=== PATIENT | female | born 1980 | race Caucasian/White ===

== ENCOUNTER 2025-06-22 15:00 | Emergency (ER) | payer OTHER, SELFPAY ==
--- OUTSIDE RECORDS SUMMARY | 2001-09-23 04:15 | XMS_ITS | Continuity of Care Document ---
Author Organization [facility] Address [address] [place] [address] [address] [place] [address] Phone Care Team Providers Care Information Specialist Name Role Phone Metzger OD, Adán Unavailable Unavailable Advance Directives Directive Yes / No Effective Date File Name No Information Encounters Encounter Description Practice Location Reason(s) For Visit Diagnoses Date Provider Providers Copied on Encounter [facility], [address] [place] [address] [address], [place], [id number], [place] tel:[phone] [facility] [place] No Information Dec-0 5-200 1 Metzger OD Adán. [address] [facility] , [address], [place], [address], [place]. tel:[phone] Family History Family Member Type Diagnosis Age At Onset No Information Payers Payer name Insurance type Covered libertarian ID Authoriza tion(s) No Information Social History Type Description Quantity Date Captured Comments Sex Female Smoking Status No Information Chief Complaint And Reason For Visit No Information Reason For Referral Reason For Referral No Information History Of Present Illness Encounter Date Complaint History Of Prese nt Illness No Information Functional Status Date Functional Assessmen t No Information Instructions Date Instruction Additional Infor mation No Information Assessments Type Assessment Date No Information Patient Care Teams Name Effective Dates (start - stop) Status Members No Information
--- OUTSIDE RECORDS SUMMARY | 2001-09-23 04:15 | XMS_ITS | Continuity of Care Document ---
Author Organization [facility] Address [address] [place] [address] [address] [place] [address] Phone Care Team Providers Care Salesforce Developer Name Role Phone Metzger OD, Adán Unavailable Unavailable Advance Directives Directive Yes / No Effective Date File Name No Information Encounters Encounter Description Practice Location Reason(s) For Visit Diagnoses Date Provider Providers Copied on Encounter Formerly [facility], [address] [place] [address] [address], [place], [place], [id number], [place] tel:[phone] [facility] [place] No Information Dec-0 5-200 1 Metzger OD Adán. [address] [facility] , [address], [place], [address], [place]. tel:[phone] Family History Family Member Type Diagnosis Age At Onset No Information Payers Payer name Insurance type Covered constitution party ID Authoriza tion(s) No Information Social History [...]
--- NOTE | ~2025-06-22 | CT_ITS ---
EXAMINATION: CT abdomen pelvis w con DATE: 06/22/2025 18:17 INDICATION: Diarrhea for 12 days. Loss of appetite. TECHNIQUE: Computed tomography (CT) of the abdomen and pelvis was performed with 100 cc Omnipaque 350 intravenous contrast. The dose-length product was 412.41 mGy-cm. Automated exposure control and iterative reconstruction technique were employed. COMPARISON: None. FINDINGS: Lung bases unremarkable. Heart size normal. Breast implants partially visualized. No significant pleural or pericardial effusion. The liver, spleen, pancreas, adrenal glands and kidneys are unremarkable. There is fluid with air- fluid levels throughout the small bowel and colon to the rectum, consistent with history of diarrhea. Cannot exclude enterocolitis. Uterus surgically absent. No acute osseous abnormality. No significant vascular abnormality. No lymphadenopathy. No free air or free fluid. IMPRESSION: 1. Moderate fluid with air-fluid levels throughout the bowel, consistent with known diarrhea. Consider infectious/inflammatory process. Reviewed, dictated and finalized at location O. IMPRESSION: 1. Moderate fluid with air-fluid levels throughout the bowel, consistent with k nown diarrhea. Consider infectious/inflammatory process.
[2025-06-22 15:01] VITALS: BP 103/72; PULSE 126; RESP 16; TEMP 36.5; O2SAT 97
[2025-06-22 15:53] VITALS: BP 108/82; PULSE 110; RESP 18; O2SAT 99
[2025-06-22] MEDS: SODIUM CHLORIDE 0.9% IV 1,000 ML 999 ML IV CONT (15:59)
[2025-06-22 16:11] LABS: Hematocrit 48.1 % (37.0-47.0); Hemoglobin 16.3 g/dL (12.0-15.0); Mean Corpuscular HGB Conc 33.9 g/dl (32-36); Mean Corpuscular Hemoglobin 27.5 pg (26-34); Mean Corpuscular Volume 81.3 fl (80-100); Platelet Count Result 316 k/mm3 (150-375); Red Blood Count 5.92 M/mm3 (4.2-5.4); White Blood Count 5.2 K/mm3 (4.5-10.0)
[2025-06-22 16:20] LABS: Alanine Aminotransferase 22 U/L (6-35); Albumin Level 4.7 g/dL (3.5-5.1); Alkaline Phosphatase 77 U/L (38-126); Anion Gap 14 mmol/L (4-12); Aspartate Amino Transferase 27 U/L (14-36); Bilirubin,Total 0.6 mg/dL (0.2-1.3); Blood Urea Nitrogen 9 mg/dL (7-17); Calcium 9.1 mg/dL (8.4-10.2); Carbon Dioxide 21 mmol/L (22-30); Chloride 101 mmol/L (98-107); Estimated CRCL calculation 85 ml/min; Estimated Glomerular Filt Rate > 60; Glucose 94 mg/dL (65-110); Lipase 47 U/L (23-300); Potassium 3.0 mmol/L (3.4-5.0); Sodium 136 mmol/L (137-145); Total Protein 8.4 g/dL (6.3-8.2)
--- OUTSIDE RECORDS SUMMARY | 2025-06-22 16:28 | XMS_ITS | Clinical Summary ---
Author Organization [facility] Address [address] [facility] [place] [address] Care Team Providers Care Color Separation Photographer Name Role Phone Shayne Valenzuela MD Primary Care Provider [phone] Source Comments [facility],non-owned Affiliates and Associated Physician Practices is amultiple site organization consisting of ambulatory clinics and hospital sitesin [place], [place], [place] and [place]. This disclosure is being madepursuant to the Care Everywhere program and may not contain all information available regarding this patient. Last updated 18.[facility] Allergies Active Allergy Reactions Criticality Noted Date Comments Penicillins Rash 11/30/2009 Medications * Be aware that medications may not be up to date on this document. Alwaysverify current medications with the patient. buPROPion (WELLBUTRIN) 100 MG tablet Take 100 mg by mouth daily. Active divalproex DR (DEPAKOTE) 250 MG tablet Take by mouth 5 times daily. Active alprazolam (XANAX) 0.5 MG tablet Take 0.5 mg by mouth 3 times daily as needed for Anxiety. Active fish oil/omega-3 fatty acids (FISH OIL) 1000 MG capsule Take 1000 mg by mouth daily. Active calcium carbonate (CALTRATE) 600 MG tablet Take 1 Tab by mouth daily with food. Active cetirizine (ZYRTEC) 10 MG tablet Take 10 mg by mouth daily. 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 Gender Identity Not on file Sexual Orientation Not on file Plan of Treatment Health Maintenance Due Date Last Done Comments LIPID TESTING 1982 MAMMOGRAM 1982 HIV SCREENING 1997 HEPATITIS C SCREENING 04/26/2000 DTAP/TDAP/TD VACCINES (1 - Tdap) 2001 HEPATITIS B VACCINE (1 of 3 - 19+ 3-dose series) 2001 HPV VACCINE (1 - 3-dose SCDM series) 2009 COVID-19 VACCINE (1 - 2023-2 5 season) 2024 DEPRESSION SCREENING 10/20/2024 INFLUENZA VACCINE (#1) 2025 ZOSTER VACCINE (1 of 2) 2032 HIB VACCINE Aged Out No longer eligi ble based on patient's age to complete this topic MENINGOCOCCAL (Group B) VACC INE SHARED DECISION-MAKING Aged Out No longer eligibl e based on patient's age to complete this topic MENINGOCOCCAL GROUPS A/C/Y/W VACCINE Aged Out No longer eligible b ased on patient's age to complete this topic PNEUMOCOCCAL VACCINE Aged Out No long er eligible based on patient's age to complete this topic Insurance [facility] Care Teams Color Separation Photographer Relationship Specialty Start Date End Date Shayne Valenzuela MD [address] [id number] PCP - General 03/09/18
--- OUTSIDE RECORDS SUMMARY | 2025-06-22 16:29 | XMS_ITS | Encounter Summary ---
Author Organization [facility] Address [address] [place] [address] Phone Care Team Providers Care Certified Adapted Physical Educator Name Role Phone Shayne Valenzuela MD Primary Care Provider [phone] Diana Jara MD Unavailable [phone] No, Physician Primary Care Provider [phone] Chente Bender MD Primary Care Provider [phone] Chente Bender MD Primary Care Provider [phone] Davida, Physician Primary Care Provider [phone] Shayne Valenzuela MD Primary Care Provider [phone] Encounter Details Date Type Department Care Team (Latest Contact Info) Description 05/29/2010 Orders Only [facility] Scanning, Provider Social History Tobacco Use Types Packs/Day Years Used Date Smoking Tobacco: Never Assessed Comments Unknown Sex and Gender Information Value Date Recorded Sex Assigned at Not on file Legal Sex Female 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 DEMONSTRATOR Gender Identity Female 12/09/2023 6:52 PM FARM DEMONSTRATOR Sexual Orientation Straight 12/09/2023 6: 52 PM FARM DEMONSTRATOR documented as of this encounter Plan of Treatment Not on file documented as of this encounter Procedures Procedure Name Priority Date/Time Associated Diagnosis Comments SCAN - LABS 05/29/2010 SCAN - LABS 05/29/2010 documented in this encounter Results * SCAN - LABS (05/29/2010) us Provider Scanning Final Result * SCAN - LABS (05/29/2010) us Provider Scanning Final Result documented in this encounter Visit Diagnoses Not on filedocumented in this encounter Care Teams Certified Adapted Physical Educator Relationship Specialty Start Date End Date Shayne Valenzuela MD [address] [place] [address] PCP - General 12/03/16 04/06/20 No, Physician PCP - General 04/07/20 05/09/22 [place] [address] [place] [address] PCP - General Family Medicine 05/13/22 06/30/22 [place] [address] [place] [address] PCP - General 05/10/22 05/12/22 No, Physician PCP - General 07/01/22 01/25/24 Shayne Valenzuela MD [address] [place] [address] PCP - General Family Medicine 01/26/24 Diana Jara MD [address] [place] [address] Referring Physician Family Medicine 01/15/19 04/06/20 documented as of this encounter
--- OUTSIDE RECORDS SUMMARY | 2025-06-22 16:29 | XMS_ITS | Clinical Summary ---
Author Organization [facility] Address [address] [place] [address] Care Team Providers Care Public Works Inspector Name Role Phone Shayne Valenzuela MD Primary Care Provider [phone] Allergies Active Allergy Reactions Criticality Noted Date Comments Amoxicillin Rash Medium Penicillins Rash Medium Medications amitriptyline (ELAVIL) 50 mg tabletIndicatio ns:pain Take 1 tablet (50 mg total) by mouth manager food safety before breakfast 12 8 Active albuterol HFA (PROVENTIL HFA,VENTOLIN HFA,PROAIR HFA) 90 mcg/actuation inhaler Inhale 2 puffs every 6 (six) hours as needed for wheezing Active ALPRAZolam (XANAX) 1 mg tabletIndicatio ns:anxiety Take 1 tablet (1 mg total) by mouth 4 (four) times a day Active QUEtiapine (SEROquel) 100 mg tabletIndicatio ns:Depression associated with Bipolar Disorder Take 1 tablet (100 mg total) by mouth 3 (three) times a day Active nitrofurantoin (MACRODANTIN) 100 mg capsuleIndicati ons:Urinary Tract/Genitouri nary Infection Take 1 capsule (100 mg total) by mouth 4 (four) times a day as needed Active traZODone (DESYREL) 50 mg tablet Take 1 tablet (50 mg total) by mouth nightly 1 Active estradioL (ESTRACE) 2 mg tabletIndicatio ns:Vasomotor Symptoms associated with Menopause Take 2 tablets (4 mg total) by mouth daily 60 tablet 2 12/19/202 3 Active tacrolimus (PROTOPIC) 0.1 % ointment APPLY THIN LAYER TOPICALLY TO THE AFFECTED AREA 1 TO 2 TIMES DAILY UNTIL RESOLVED. REPEAT NEEDED FOR FLARES THEREAFTER 4 Active triamcinolone (KENALOG) 0.1 % cream APPLY TWICE TO AFFECTED AREAS OF CHEST FOR 2 WEEKS THEN TAKE 1 WEEK BREAK. IF RASH CONTINUES RESUME CREAM. 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 Overview (08/22/2020): Added automatically from request for surgery [id number] Cysts of both ovaries 07/27/2020 Vasomotor symptoms due to menopause 07/27/2020 Postoperative visit 07/27/2020 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 01/03/2017 Polyp of colon 04/06/2015 Peutz-Jeghers syndrome 11/22/2014 Overview (05/18/2018): Added automatically from request for surgery [id number] Peutz-Jeghers syndrome 11/22/2014 Encounters Date Type Department Care Team Description 06/22/2025 Telephone [facility] Gastroenterology [facility] [address] [place] [address] [place] [address] Laurie Piña RN 06/21/2025 Telephone [facility] [address] [facility] [address] [place] [address] [place] [address] Gege Verduzco LPN 05/26/2025 8:00 AM CDT Procedure visit [facility] Otolaryngology [address] [facility] [address] [place] [address] [place] [address] Michelle Beltre Au.D. Tinnitus of both ears (Primary Dx) 05/09/2025 8:42 AM CDT - 05/09/2025 11:59 PM CDT Hospital Encounter [facility] ([facility]) [address] [place] [address] Encounter for screening mammogram for malignant neoplasm of breast Discharge Disposition: Discharge to home or self care from Last 3 Months Surgical History Surgery Date Site/Laterality Comments [place] TOTAL ABDOMINAL HYSTERECT W/WO RMVL TUBE OVARY Hysterectomy - (Added by TW Conv) [place] APPENDECTOMY Appendectomy - (Added by TW Conv) [place] UNLISTED PROCEDURE SMALL INTESTINE Intestinal Surgery - (Added by TW Conv) COLECTOMY THYROID CYST EXCISION HYSTERECTOMY SALPINGOOPHORECTOMY 06/30/2020 Bilateral CHOLECYSTECTOMY 10/20/2021 - 10/19/2022 BREAST SURGERY 10/20/2020 - 10/19/2021 Bilateral implants Medical History Medical History Date Comments Anemia Colon polyp Peutz-Jeghers polyps of small bowel (HCC) Asthma Chronic bronchitis (HCC) hisotry of it a few years ago Anxiety Cervical cancer (HCC) chronic ca ncerous cells in vaginal wall Interstitial cystitis Depression Panic attacks Family History Medical History Relation Name Comments Colon cancer Father Colon cancer - (Added by TW Conv) Heart disease Father Family history of cardiac disorder - (Added by TW Conv) Breast cancer Maternal Grandmother Family history of malignant neoplasm of breast - (Added by TW Conv) Diabetes Mother Family history of diabetes mellitus - (Added by TW Conv) Pancreatic cancer Paternal Grandfather Breast cancer Paternal Grandmother Family history of malignant neoplasm of breast - (Added by TW Conv) Anesthesia problems Neg Hx Relation Name Status Comments Father Maternal Grandmother Mother Paternal Grandfather Paternal Grandmother Social History Tobacco Use Types Packs/Day Years Used Date Smoking Tobacco: Former Cigarettes 0.2 5 2 005 - 2009 Smokeless Tobacco: Never Alcohol Use Standard Drinks/Week Comments No 0 (1 standard drink = 0.6 oz pur e alcohol) AUDIT-C Answer Date Recorded Q1: How often do you have a drink containing alcohol? Never 03/31/2024 Q2: How many drinks containi ng alcohol do you have on a typical day when you are drinking? Patient does not drink Q3: How often do you have si x or more drinks on one occasion? Never 03/31/2024 Personal Safety Answer Date Recorded Have you ever been in or are you currently in a harmful physical or emotional relationship or is someone making you feel afraid or unsafe? Denies 03/31/2024 Comments No Sex and Gender Information Value Date Recorded Sex Assigned at Not on file Legal Sex Female 9:10 PM CLIENT RELATIONSHIP MANAGER Gender Identity Female 12/09/2023 6:52 PM CLIENT RELATIONSHIP MANAGER Sexual Orientation Straight 12/09/2023 6: 52 PM CLIENT RELATIONSHIP MANAGER Obstetrics History Para Term AB IAB SAB Ectopic Multiple Livin g Live Births 0 0 0 0 0 0 0 0 0 0 0 Last Filed Vital Signs Vital Sign Reading Time Taken Comments Blood Pressure 117/92 03/31/2024 11:42 AM CDT Pulse 93 03/31/2024 11:42 AM CDT Temperature 36 C (96.8 F) 03/31/2024 11:22 AM CDT Respiratory Rate 17 03/31/2024 11:42 AM CDT Oxygen Saturation 97% 03/31/2024 11:42 AM CDT Inhaled Oxygen Concentration - - Weight 78.5 kg (173 lb) 05/09/2025 8:49 AM CDT Height 180.3 cm (5' 11) 05/09/2025 8:49 AM CDT Body Mass Index 24.13 05/09/2025 8:49 AM CDT Plan of Treatment Health Maintenance Due Date Last Done Comments Depression Screening 1982 Hepatitis C Screening 1982 DTaP/Tdap/Td Vaccine (1 - Tdap) 1993 Varicella Vaccines (1 of 2 - 13+ 2-dose series) 1995 Hepatitis B Screening 2000 Regular Well Visit/Exam 18-64 2000 Pneumococcal vaccine <65 (1 of 2 - PCV) 2001 HPV Vaccines (1 - 3-dose SCD M series) 2009 Covid-19 Vaccine (2 - 2024-2 6 season) 2025 11/17/2020 Influenza Vaccine (#1) 2025 Breast Cancer Screening-Mammogram 05/09/2026 05/09/2025, 02/26/2024, 10/09/2022, Additional history exists Cervical Cancer Screening Discontinued 2022, 05/09/2023, 05/10/2022, Additional history exists Procedures Procedure Name Priority Date/Time Associated Diagnosis Comments AUDBASE RESULTS 05/26/2025 8:01 AM CDT SCREENING MAMMOGRAM BILATERAL W RICHARDSON W IMPLANTS Schedule Routine, Read Routine (OP Routine) 05/09/2025 8:59 AM CDT Encounter for screening mammogram for malignant neoplasm of breast HIGH RISK HPV DNA DETECTION WITH GENOTYPING Routine 05/09/2023 9:08 AM CDT from Last 3 Months or Most Recently Relevant to Health Maintenance Results * AudBase Results (05/26/2025 8:01 AM CDT) Provider Scanning AUDIOLOGY SERVICES ORDERABLES Final Result * Screening Mammogram Bilateral w Richardson w Implants (05/09/2025 8:59 AM CDT) Anatomical Region Laterality Modality Breast Bilateral Mammography Impressions 05/11/2025 10:45 AM CDT Bilateral No evidence of malignancy in either breast. OVERALL BI-RADS FINAL ASSESSMENT: 1 - Negative RECOMMENDATION: Recommend bilateral annual screening mammography. Narrative 05/11/2025 10:45 AM CDT EXAMINATION: Screening Mammogram Bilateral w Richardson w Implants: 05/09/2025 COMPARISON: Relevant prior studies available at the time of interpretation were reviewed, including the most recent mammogram on: 02/26/2024. TECHNIQUE: Mammography was performed with 2D and digital breast tomosynthesis (DBT) images. CAD was utilized. BREAST PARENCHYMAL COMPOSITION: There are scattered areas of fibroglandular density. FINDINGS: Bilateral There is no suspicious mass, calcification, or architectural distortion in either breast.Stable implants. Francisca Higginbotham DO IMG MAMMO PROCEDURES Fin al Result * High Risk HPV DNA Detection with Genotyping (Molecular component) (05/09/2023 9:08 AM CDT) HPV HR 16 Not Detected Not Detected [facility] HPV HR 18 Not Detected Not Detected [facility] HPV HR Non 16/18 Not Detected Not Detected [facility] Comment: Interpretive Data Nucleic acid amplification for detection of high-risk Human Papilloma virus (HPV) is performed by the Sara Elie 6800 HPV test. This assay specifically detects HPV-16 and HPV-18 genotypes. The following HPV genotypes are detected as high-risk HPV: HPV-31, 33, 35, ,39, 45, 51, 52, 56, 58, 59, 66, and 68. This assay has been approved by the [place] Food and Drug Administration for detection of HPV in cervical specimens collected by a physician using an endocervical brush/spatula or cervical broom and placed in the ThinPrep Pap Test PreservCyt collection containers. The performance characteristics of this test have been verified by the [facility] Molecular Infectious Disease laboratory. Correlate with separately reported cytology results, as applicable. Interpretive data last revised 23 Endocervical 05/09/2023 9:08 AM CDT 05/12/2023 3:59 PM CDT us Raina Ramon MD LAB BODY FLUIDS AND STO OLS ORDERABLES Final Result Performing Organization Address City/State/[facility] Co de Phone Number [facility] [place] [address] from Last 3 Months or Most Recently Relevant to Health Maintenance Insurance [facility] Member Subscriber Plan / Payer (Ef fective 2018-Present) Name:Iona Hawley Relation to Subscriber:Self Name:IONA HAWLEY Payer ID:[id number] (NAIC) Type:MIQUEL ORNELAS Address: [facility] [id number] [place] [facility] CHOICE [facility]US [facility] HMO/PPO Address: [place] [address] [facility]/PPO Address: [place] [address] [facility] CHOICE [facility]US [facility] HMO/PPO Address: [facility] [address] [place] [address] Advance Directives For more information, please contact: [phone] * Full Code (Latest Code Status on File) Date Activated Date Inactivated Comments 03/31/2024 8:32 AM 03/31/2024 3:57 PM * Full Code Date Activated Date Inactivated Comments 03/30/2024 10:43 AM 03/30/2024 5:52 PM * Full Code Date Activated Date Inactivated Comments 09/28/2021 7:32 AM 09/28/2021 1:15 PM * Full Code Date Activated Date Inactivated Comments 06/30/2020 3:15 PM 06/30/2020 9:27 PM * Full Code Date Activated Date Inactivated Comments 07/21/2018 8:07 AM 07/21/2018 12:54 PM Care Teams Public Works Inspector Relationship Specialty Start Date End Date Shayne Valenzuela MD [address] [place] [address] PCP - General Family Medicine 01/26/24
--- OUTSIDE RECORDS SUMMARY | 2025-06-22 16:29 | XMS_ITS | Encounter Summary ---
Author Organization [facility] Address [address] [place] [address] Phone Care Team Providers Care Field Case Manager Name Role Phone Shayne Valenzuela MD Primary Care Provider [phone] Encounter Details Date Type Department Care Team (Late st Contact Info) Description 06/22/2025 Telephone [facility] Gastroenterology [facility] 12th [place] [address] [place] [address] Laurie Piña RN Social History Tobacco Use Types Packs/Day Years [...] on file Legal Sex Female 9:10 PM ELECTRIC ACCOUNTING MACHINE OPERATOR Gender Identity Female 12/09/2023 6:52 PM ELECTRIC ACCOUNTING MACHINE OPERATOR Sexual Orientation Straight 12/09/2023 6: 52 PM ELECTRIC ACCOUNTING MACHINE OPERATOR documented as of this encounter Miscellaneous Notes * Telephone Encounter - Laurie Piña RN - 06/22/2025 11:14 AM CDT Spoke to pt, updated her that I had messaged with Brown and Brown planned to call the pt regarding her symptoms. Pt said she thinks she is going to go the ER, I discussed with her and endorsed that if she is having urgent symptoms, likely the ER would be the best option. Verbalized understanding. documented in this encounter Plan of Treatment Not on file documented as of this encounter Visit Diagnoses Not on filedocumented in this encounter Care Teams Field Case Manager Relationship Specialty Start Date End Date Shayne Valenzuela MD [address] [place] [address] PCP - General Family Medicine 01/26/24 documented as of this encounter
--- OUTSIDE RECORDS SUMMARY | 2025-06-22 16:29 | XMS_ITS | Encounter Summary ---
Author Organization [facility] Address [address] [place] [address] Phone Care Team Providers Care Distribution Sales Manager Name Role Phone Shayne Valenzuela MD Primary Care Provider [phone] Encounter Details Date Type Department Care Team (Late st Contact Info) Description 06/21/2025 Telephone [facility] Gastroenterology [facility] [address]th [place] [address] [place] [address] Gege Verduzco LPN Social History Tobacco Use Types Packs/Day Years [...] on file Legal Sex Female 9:10 PM JAVASCRIPT DEVELOPER Gender Identity Female 12/09/2023 6:52 PM JAVASCRIPT DEVELOPER Sexual Orientation Straight 12/09/2023 6: 52 PM JAVASCRIPT DEVELOPER documented as of this encounter Miscellaneous Notes * Telephone Encounter - Gege Verduzco LPN - 06/22/2025 10:58 AM CDT Pt LVM wanting to speak with Brown DE JESUS. RN is still out of the office. * Telephone Encounter - Gege Verduzco LPN - 06/21/2025 2:23 PM CDT Pt LVM stating she is on day 11 of diarrhea, recently developed a fever, and loss of appetite. She has been to UC and stool urine samples were taken and came back negative but inquired if office could give further guidance. SARA: 11/2016 Last colonoscopy: 03/2024 Spoke with Laurie DE JESUS child care supervisor who confirmed pt will need to speak with PCP for GI consult. Returned call to pt. Informed her recommendations. She stated she will call back tomorrow and speak with Brown directly. documented in this encounter Plan of Treatment Not on file documented as of this encounter Visit Diagnoses Not on filedocumented in this encounter Care Teams Distribution Sales Manager Relationship Specialty Start Date End Date Shayne Valenzuela MD [address] [place] [address] PCP - General Family Medicine 01/26/24 documented as of this encounter
--- NOTE | 2025-06-22 16:40 | ED.NAVMDI ---
HPI - Nausea/Vomiting/Diarrhea General Chief complaint: Nausea/Vomiting/Diarrhea Stated complaint: diarrhea Time Seen by Provider: 06/22/25 15:36 Source: patient Mode of arrival: ambulatory Limitations: no limitations History of Present Illness HPI Narrative: This is a 45-year-old female that presents to the emergency department for diarrhea. Ongoing over the last 12 days. Reports 6 episodes daily. The diarrhea is watery. She has been evaluated for this complaint, had negative C diff testing. Continues to have diarrhea and crampy abdominal pain. Reports subjective fever. Related Data Allergies Allergy/AdvReac Type Severity Reaction Status Date / Time amoxicillin Allergy Intermediate rash Verified 06/22/25 15:05 itching Penicillins Allergy Intermediate rash and Verified 06/22/25 15:05 itching Review of Systems Review of Systems: All systems reviewed & are unremarkable except as noted in HPI and below PMFSH Past Medical History Medical History (Updated 06/22/25 @ 18:55 by Cherise Mccall PA-C) Peutz-Jeghers syndrome Exam Narrative: GENERAL: Well-appearing, well-nourished, and in no acute distress. HEAD: Normocephalic, atraumatic. EYES: EOMI. CHEST: Clear to auscultation. No respiratory distress. No wheezes rales or rhonchi HEART: Regular rate and rhythm. No murmur heard. Normal peripheral pulses. ABDOMEN: Soft, nontender, nondistended, normal active bowel sounds. EXTREMITIES: Normal range of motion. No edema. SKIN: Warm, dry, no rash. NEURO: No focal deficits. Alert and oriented x3. PSYCH: Normal mood and affect Course Vital Signs Vital signs: Vital Signs Temperature 97.7 F 06/22/25 15:01 Pulse Rate 126 H 06/22/25 15:01 Respiratory Rate 16 06/22/25 15:01 Blood Pressure 103/72 06/22/25 15:01 Pulse Oximetry 97 06/22/25 15:01 Oxygen Delivery Room Air 06/22/25 15:01 Temperature 97.7 F 06/22/25 15:01 Pulse Rate 96 06/22/25 16:46 Respiratory Rate 16 06/22/25 16:46 Blood Pressure 120/83 06/22/25 16:46 Pulse Oximetry 99 06/22/25 16:46 Oxygen Delivery Room Air 06/22/25 15:01 MDM - Nausea/Vomiting/Diarrhea MDM Narrative Medical decision making narrative: Patient presents the emergency department for abdominal pain, diarrhea. Tachycardic upon arrival, this normalized with IV fluids. CBC and metabolic panel with evidence of dehydration. Mild hypokalemia present, potassium replaced. Magnesium is low normal, this was also replaced. Urine without evidence of infection. CT abdomen and pelvis with infectious or inflammatory colitis. Patient is endorsing that she has now developed fevers. Will be started on oral antibiotics for possible infectious colitis. She was updated on her workup and agrees with plan of care. Instructed to have further follow-up with gastroenterology. She was given warnings to return to the ER Differential Diagnosis Differential diagnosis: Likely food poisoning, gastroenteritis, dehydration and other (Colitis) Medical Records Attestation: I reviewed the patient's medical records. Medical records narrative: I was able to review patient's results from her previous visit for this issue with negative c. diff testing Lab Data Attestation: I reviewed the patient's lab results. 06/22/25 15:57 06/22/25 15:57 Labs: Lab Results 06/22/25 06/22/25 Range/Units 15:57 17:01 WBC 5.2 (4.5-10.0) K/mm3 RBC 5.92 H (4.2-5.4) M/mm3 Hgb 16.3 H (12.0-15.0) g/dL Hct 48.1 H (37.0-47.0) % MCV 81.3 (80-100) fl MCH 27.5 (26-34) pg MCHC 33.9 (32-36) g/dl RDW 13.1 (11.5-14.5) % Plt Count 316 (150-375) k/mm3 MPV 9.3 (7.4-10.4) fl Immature Gran % (Auto) Not Reportable Neut % (Auto) Not Reportable Lymph % (Auto) Not Reportable [place] % (Auto) Not Reportable Eos % (Auto) Not Reportable Baso % (Auto) Not Reportable Lymph # (Auto) Not Reportable [place] # (Auto) Not Reportable Eos # (Auto) Not Reportable Baso # (Auto) Not Reportable Abs Immat Gran (auto) Not Reportable Absolute Neuts (auto) Not Reportable Absolute Nucleated RBC Not Reportable Total Counted 100 Neutrophils % (Manual) 38 L (46-73) % Band Neutrophils % 16 H (0-6) % Lymphocytes % (Manual) 27 (18-44) % Monocytes % (Manual) 18 H (3-9) % Nucleated RBC % Not Reportable Abs Neuts (Manual) 2.80 (1.3-6.7) K/mm3 Abs Lymphs (Manual) 1.40 (1.1-4.5) K/mm3 Abs Monocytes (Manual) 0.93 H (0.1-0.90) K/mm3 Platelet Estimate Adequate (Adequate) Schistocytes None seen Sodium 136 L (137-145) mmol/L Potassium 3.0 L (3.4-5.0) mmol/L Chloride 101 (98-107) mmol/L Carbon Dioxide 21 L (22-30) mmol/L Anion Gap 14 H (4-12) mmol/L BUN 9 (7-17) mg/dL Creatinine 0.83 (0.7-1.0) mg/dL Estim Creat Clear Calc 85 ml/min Estimated GFR > 60 (59 - ) Glucose 94 (65-110) mg/dL Calcium 9.1 (8.4-10.2) mg/dL Magnesium 1.7 (1.6-2.3) mg/dL Total Bilirubin 0.6 (0.2-1.3) mg/dL AST 27 (14-36) U/L ALT 22 (6-35) U/L Alkaline Phosphatase 77 (38-126) U/L Total Protein 8.4 H (6.3-8.2) g/dL Albumin 4.7 (3.5-5.1) g/dL Lipase 47 (23-300) U/L Urine Color Yellow (Yellow) Urine Appearance Clear (Clear) Urine pH 6.5 (5.0-9.0) Ur Specific [place] 1.006 (1.001-1.035) Urine Protein Negative (Negative) mg/dL Urine Glucose (UA) Negative (Negative) mg/dL Urine Ketones Trace H (Negative) mg/dL Ur Blood (Man) Negative (Negative) Urine Nitrate Negative (Negative) Urine Bilirubin Negative (Negative) Urine Urobilinogen 0.2 (<2.0) mg/dL Leukocyte Esterase Rfl Negative (Negative) NIXON/UL Imaging Data Radiologist's impression: ITS Impressions Abdomen/Pelvis CT 06/22/25 18:28 IMPRESSION: 1. Moderate fluid with air-fluid levels throughout the bowel, consistent with known diarrhea. Consider infectious/inflammatory process. Critical Care Time Critical Care Time Critical Care Time: No Discharge Plan Discharge Clinical Impression: Colitis, Acute dehydration, Hypokalemia Patient Disposition: Home Condition: Stable Instructions: Dehydration (ED), Hypokalemia (ED), Acute Diarrhea (ED), Colitis (ED) Additional Instructions: Return to the ER if you experience fever, abdominal pain with nausea and vomiting, you are unable to keep down liquids or solids, blood in the stool, or any other symptoms that are concerning to you Remain well hydrated. Take potassium supplementation as prescribed. Take oral antibiotics as prescribed Follow up with Gastroenterology Patient Language: Maltese Prescriptions: New potassium chloride 20 mEq packet 20 meq PO DAILY 5 Days Qty: 5 0RF metronidazole 500 mg tablet 500 mg PO Q12H 5 Days Qty: 10 0RF ciprofloxacin HCl 500 mg tablet 500 mg PO Q12H 5 Days Qty: 10 0RF Follow-up/Referrals: Bianca,Shayne Herrera MD [Primary Care Provider, Unknown] Rome Tate MD [Physician, Gastroenterology]
[2025-06-22 16:44] LABS: Neutrophils Percent Manual 38 % (46-73); Total Cells Counted 100
[2025-06-22 16:45] LABS: Band Neutrophils Percent 16 % (0-6); Lymphocytes Absolute Manual 1.40 K/mm3 (1.1-4.5); Lymphocytes Percent Manual 27 % (18-44); Monocytes Absolute Manual 0.93 K/mm3 (0.1-0.90); Monocytes Percent Manual 18 % (3-9); Neutrophils Absolute Manual 2.80 K/mm3 (1.3-6.7); Schistocytes None Seen
[2025-06-22 16:46] VITALS: BP 120/83; PULSE 96; RESP 16; O2SAT 99
[2025-06-22] MEDS: LACTATED RINGERS 1,000 ML 999 ML IV CONT (16:47)
[2025-06-22] MEDS: POTASSIUM CHLORIDE 20 MEQ ER TABLET 40 MEQ PO (16:47)
[2025-06-22 16:56] LABS: Magnesium 1.7 mg/dL (1.6-2.3)
[2025-06-22 17:09] LABS: Add Urine Microscopic? NO; Appearance Urine Clear (Clear); Glucose Urine UA Negative (Negative); Leukocyte Esterase Ur Negative LEU/UL (Negative); Nitrate Urine Negative (Negative); Specific Grav Ur 1.006 (1.001-1.035)
--- OUTSIDE RECORDS SUMMARY | 2025-06-22 17:13 | XMS_ITS | Clinical Summary ---
Author Organization [facility] Address [address] [place] [address] Care Team Providers Care Assessment Director Name Role Phone Shayne Valenzuela MD Primary Care Provider [phone] Allergies Active Allergy Reactions Criticality Noted Date Comments Amoxicillin Rash Medium Penicillins Rash Medium Medications amitriptyline (ELAVIL) 50 mg tabletIndicatio ns:pain Take 1 tablet (50 mg total) by mouth mechanical unit repairer before breakfast 12 8 Active albuterol HFA [...] (08/22/2020): Added automatically from request for surgery [id number] Cysts of both ovaries 07/27/2020 Vasomotor symptoms due to menopause 07/27/2020 Postoperative visit 07/27/2020 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 01/03/2017 Polyp of colon 04/06/2015 Peutz-Jeghers syndrome 11/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 Overview (05/18/2018): Added automatically from request for surgery [id number] Peutz-Jeghers syndrome 11/22/2014 Encounters Date Type Department Care Team Description 06/22/2025 Telephone [facility] Medicine Gastroenterology [facility] [facility] [address] [place] [address] [place] [address] Laurie Piña RN 06/21/2025 Telephone [facility] Gastroenterology [address] [facility] [address] [place] [address] [place] [address] Gege Verduzco LPN 05/26/2025 8:00 AM CDT Procedure visit [facility] Medicine Otolaryngology [address] [facility] [address] [place] [address] [place] [address] Michelle Beltre Au.D. Tinnitus of both ears (Primary Dx) 05/09/2025 8:42 AM CDT - 05/09/2025 11:59 PM CDT Hospital Encounter [facility] ([facility]) [address] [place] [address] Encounter for screening mammogram for malignant neoplasm of breast Discharge Disposition: Discharge to home or self care from Last 3 Months Surgical History Surgery Date Site/Laterality Comments [place] TOTAL ABDOMINAL HYSTERECT W/WO RMVL TUBE OVARY Hysterectomy - (Added by TW Conv) [place] APPENDECTOMY Appendectomy - (Added by TW Conv) [place] UNLISTED PROCEDURE SMALL INTESTINE Intestinal Surgery - [...] on file Legal Sex Female 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 Comment: Interpretive Data Nucleic acid amplification [...] have been verified by the [facility] Molecular Infectious Disease laboratory. Correlate with separately reported cytology results, as applicable. Interpretive data last revised 23 Endocervical 05/09/2023 9:08 AM CDT 05/12/2023 3:59 PM CDT us Raina Ramon MD LAB BODY FLUIDS AND STO OLS ORDERABLES Final Result Performing Organization Address City/State/[facility] Co de Phone Number [facility] [place] [address] from Last 3 Months or Most Recently Relevant to Health Maintenance Insurance [facility] Member Subscriber Plan / Payer (Ef fective 2018-Present) Name:Iona Hawley Relation to Subscriber:Self Name:IONA HAWLEY Payer ID:[id number] (NAIC) Type:MIQUEL ORNELAS Address: [facility] [address] [place] [facility] CHOICE PLUS [facility] CHOICE PLUS [facility] CHOICE PLUS Advance Directives For more information, please contact: [phone] * Full Code (Latest Code Status on [...] 8:07 AM 07/21/2018 12:54 PM Care Teams Assessment Director Relationship Specialty Start Date End Date Shayne Valenzuela MD [address] [place] [address] PCP - General Family Medicine 01/26/24
--- OUTSIDE RECORDS SUMMARY | 2025-06-22 17:13 | XMS_ITS | Encounter Summary ---
Author Organization [facility] Address [address] [place] [address] Phone Care Team Providers Care Part Maker Name Role Phone Shayne Valenzuela MD Primary Care Provider [phone] Diana Jara MD Unavailable [phone] No, Physician Primary Care Provider [phone] Chente Bender MD Primary Care Provider [phone] Chente Bender MD Primary Care Provider [phone] Davida, Physician Primary Care Provider Shayne Valenzuela MD Primary Care Provider [phone] Encounter Details Date Type Department Care Team (Latest Contact Info) Description 05/29/2010 Orders Only [facility] Scanning, Provider Social History Tobacco Use Types Packs/Day Years Used Date Smoking Tobacco: Never Assessed Comments Unknown Sex and Gender Information Value Date Recorded Sex Assigned at Not on file Legal Sex Female 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 Gender Identity Female 12/09/2023 6:52 PM DIRECTOR OF DISTRICT OFFICE Sexual Orientation Straight 12/09/2023 6: 52 PM DIRECTOR OF DISTRICT OFFICE documented as of this encounter Plan of [...] on filedocumented in this encounter Care Teams Part Maker Relationship Specialty Start Date End Date Shayne Valenzuela MD [address] [place] [address] PCP - General 12/03/16 04/06/20 No, Physician PCP - General 04/07/20 05/09/22 [place] [address] [place] [address] PCP - General Family Medicine 05/13/22 06/30/22 [place] [address] [place] [address] PCP - General 05/10/22 05/12/22 No, Physician PCP - General 07/01/22 01/25/24 Shayne Valenzuela MD [address] [place] [address] PCP - General Family Medicine 01/26/24 Diana Jara MD [address] [place] [address] Referring Physician Family Medicine 01/15/19 04/06/20 documented as of this encounter
--- OUTSIDE RECORDS SUMMARY | 2025-06-22 17:13 | XMS_ITS | Encounter Summary ---
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
--- OUTSIDE RECORDS SUMMARY | 2025-06-22 17:13 | XMS_ITS | Clinical Summary ---
Author Organization [facility] Address [address] [facility] [place] [address] Care Team Providers Care Brokerage Clerk Name Role Phone Shayne Valenzuela MD Primary Care Provider [phone] Source Comments [facility],non-owned Affiliates and Associated Physician Practices is amultiple site organization consisting of ambulatory clinics and hospital sitesin [place], [place], [place] and [place]. This disclosure is being madepursuant to the Care Everywhere program and may not contain all information available regarding this patient. Last updated 18.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
--- OUTSIDE RECORDS SUMMARY | 2025-06-22 17:13 | XMS_ITS | Encounter Summary ---
Author Organization [facility] Address [address] [place] [address] Phone Care Team Providers Care Typesetter Apprentice Name Role Phone Shayne Valenzuela MD Primary Care Provider [phone] Encounter Details Date Type Department Care Team (Late st Contact Info) Description 06/21/2025 Telephone [facility] Gastroenterology [facility] [address]th [place] [address] [place] [address] Gege Verduzco LPN Social History Tobacco Use [...] on file Legal 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 Returned call to pt. Informed her recommendations. She stated she will call back tomorrow and speak with Brown directly. documented in this encounter Plan of Treatment Not on file documented as of this encounter Visit Diagnoses Not on filedocumented in this encounter Care Teams Typesetter Apprentice Relationship Specialty Start Date End Date Shayne Valenzuela MD [address] [place] [address] PCP - General Family Medicine 01/26/24 documented as of this encounter
[2025-06-22] MEDS: MAGNESIUM SULF 1 GM/D5W 100 ML 1 GM/100 ML BAG IVPB (17:45)
[2025-06-22 19:06] VITALS: BP 111/88; PULSE 99; RESP 18; O2SAT 98
== END 2025-06-22 19:14 | disposition home or self-care (01) ==
PROVIDERS: Emergency Provider Physician Assistant; PCP Family Medicine
DX: K52.9 Noninfective gastroenteritis and colitis, unspecified (principal); E86.0 Dehydration; E87.6 Hypokalemia; Q85.89 Other phakomatoses, not elsewhere classified
CPT/HCPCS: 36415; 74177; 80053; 81003; 83690; 83735; 85025; 87045; 87046; 87427; 96361; 96365; 99284; A9270; J3475; J7030; J7120; Q9967